=== PATIENT | male | born 2005 | race Two or more races ===

== ENCOUNTER 2024-08-03 17:24 | Emergency (ER) | payer MEDICAID ==
[~2024-08-03] VITALS: Ht 175.3 cm; Wt 88.5 kg
[2024-08-03] MEDS ORDERED: IBUPROFEN 600 MG TABLET ONE (19:58)
[2024-08-03] MEDS: IBUPROFEN 600 MG TABLET PO ONE (20:00)
[2024-08-03 20:05] VITALS: BP 116/66; TEMP 97.6; O2SAT 97
== END 2024-08-03 20:05 | disposition home or self-care (01) ==
LOC: ER 17:31
DX: M25.561 Pain in right knee (principal); M54.6 Pain in thoracic spine; R10.30 Lower abdominal pain, unspecified; R51.9 Headache, unspecified
CPT/HCPCS: 70450-TC; 73564-TC